=== PATIENT | male | born 1980 | race Caucasian/White ===

== ENCOUNTER → 2020-03-10 09:55 | Outpatient (BNVA) | payer OTHER, SELFPAY | PROVIDERS: Family Provider Family Medicine; PCP Family Medicine; Visit Provider Emergency Medicine | DX: R11.0 Nausea (principal); R68.89 Other general symptoms and signs; Z11.59 Encounter for screening for other viral diseases; K52.9 Noninfective gastroenteritis and colitis, unspecified; J31.0 Chronic rhinitis | CPT/HCPCS: 87635 ==

== ENCOUNTER 2020-04-15 13:00 | Outpatient (RCR) | payer OTHER, SELFPAY | END 2020-04-26 23:59 | disposition home or self-care (01) | LOC: SPT 13:00 | PROVIDERS: PCP Nurse Practitioner Family; Visit Provider Nurse Practitioner Family | DX: M54.9 Dorsalgia, unspecified (principal) | CPT/HCPCS: 97032; 97161 ==

== ENCOUNTER → 2020-08-31 09:40 | Outpatient (BNVA) | payer OTHER, SELFPAY | PROVIDERS: PCP Nurse Practitioner Family; Visit Provider Emergency Medicine | DX: Z20.828 Contact with and (suspected) exposure to other viral communicable diseases (principal); J40 Bronchitis, not specified as acute or chronic; R68.89 Other general symptoms and signs | CPT/HCPCS: 87400; 87635 ==

== ENCOUNTER 2020-09-28 12:38 | Outpatient (CLI) | payer OTHER, SELFPAY ==
--- NOTE | 2020-09-28 12:43 | XR_ITS ---
WS: [id number] Cervical spine, 3 views, 09/28/2020 Clinical Data: M54.2 - Cervicalgia Comparison: None. Findings: No compression fractures are seen. The disc heights are normal. There is no prevertebral so ft tissue swelling. The odontoid is unremarkable. The soft tissues of the neck and the lung apices ar e normal. XR/XR cervical spine 3V* [id number] Impression: Negative cervical spine.
== END 2020-09-28 12:39 | disposition home or self-care (01) ==
LOC: RAD 12:38
PROVIDERS: PCP Nurse Practitioner Family; Visit Provider Emergency Medicine
DX: M54.2 Cervicalgia (principal); V89.2XXA Person injured in unspecified motor-vehicle accident, traffic, initial encounter
CPT/HCPCS: 72040